=== PATIENT | male | born 1975 | race Hispanic/Latino ===

== ENCOUNTER 2019-06-20 18:38 | Outpatient (CLI) | payer OTHER, SELFPAY ==
--- NOTE | ~2019-06-20 | XR_ITS ---
EXAMINATION: XR ankle RT 2V DATE: 06/20/2019 18:56 INDICATION: Anterior right ankle pain TECHNIQUE: Anteroposterior, oblique, mortise, and lateral views of the right ankle were obtained. COMPARISON: None. FINDINGS: Alignment is normal. No fracture. Joint spaces are well maintained. Small Achilles and plantar calca brock spurs. No cortical erosions or periosteal reaction. No ankle joint effusion. Soft tissue swellin g with subcutaneous edema along the lateral aspect of the distal lower leg and more prominently overl taylor the lateral malleolus. IMPRESSION: 1. Soft tissue swelling at the lateral right lower leg and ankle with no ankle joint effusion or acut e osseous abnormality. Reviewed, dictated and finalized at location A. IC AWNING REPAIRER IMPRESSION: 1. Soft tissue swelling at the lateral right lower leg and ankle with no ankle joint effusion or acute osseous abnormality.
== END 2019-06-20 18:39 | disposition home or self-care (01) ==
LOC: ANHIMG 18:41
PROVIDERS: PCP Family Medicine; Visit Provider Family Medicine
DX: M25.579 Pain in unspecified ankle and joints of unspecified foot (principal); M79.89 Other specified soft tissue disorders
CPT/HCPCS: 73600

== ENCOUNTER 2020-03-19 08:02 | Emergency (ER) | payer OTHER, SELFPAY ==
--- NOTE | 2020-03-19 08:17 | ED.GENADULT ---
HPI - General Adult General Chief complaint: Wound/Laceration Stated complaint: pain in buttocks area Time Seen by Provider: 03/19/20 08:17 Source: patient Mode of arrival: ambulatory Limitations: no limitations History of Present Illness HPI narrative: 45-year-old male patient presents to the [facility] with complaints of a sore to right buttocks for the past 2 days. Patient states he has not been sleeping well due to the pain. Patient states he has taken some Tylenol for the pain recently. Patient states that he is type II diabetic and has had a sore to the buttocks before but states he had had surgery on it because it was on the bone. Patient states that when he feels this feels like a sore lump area to the buttocks. Denies any drainage from the area. Related Data Home Medications Medication Instructions Recorded Confirmed glimepiride [Amaryl] 1 mg PO TID 03/19/20 03/19/20 hydrochlorothiazide 12.5 mg PO DAILY 03/19/20 03/19/20 lisinopril [Zestril] 20 mg PO DAILY 03/19/20 03/19/20 metformin 1,000 mg PO BID 03/19/20 03/19/20 omeprazole magnesium [Prilosec OTC] 20 mg PO DAILY 03/19/20 03/19/20 sitagliptin [Januvia] 100 mg PO DAILY 03/19/20 03/19/20 Allergies Allergy/AdvReac Type Severity Reaction Status Date / Time No Known Allergies Allergy Verified 03/19/20 08:24 Review of Systems Review of Systems: Narrative: CONSTITUTIONAL: Denies fever, chills, or sweats. EYES: Denies visual changes, redness, or discharge. ENT: Denies rhinorrhea, congestion, sore throat, or otalgia. CARDIOVASCULAR: Denies chest pain, palpitations, or edema. RESPIRATORY: Denies cough or dyspnea. GASTROINTESTINAL: Denies abdominal pain, nausea, vomiting, or diarrhea. GENITOURINARY: Denies dysuria or hematuria. SKIN: Denies rash or itching. Positive wound to right buttocks x2 days MUSCULOSKELETAL: Denies back pain, joint pain, or myalgia. NEUROLOGIC: Denies headache, numbness, or weakness. PSYCHIATRIC: Denies anxiety or depression. [facility] Past Medical History Medical History (Updated 03/19/20 @ 08:50 by CATHY Fisher) Depression Diabetes GERD (gastroesophageal reflux disease) Hypertension Mixed hyperlipidemia Skin disorder Cyst removed on tailbone Type 2 diabetes mellitus Surgical History Surgical History (Updated 03/19/20 @ 08:19 by CATHY Fisher) History of appendectomy Family History Family History Other Diabetes mellitus Family history of kidney disease Hypertension Social History Social History Smoking status: Never smoker Second hand tobacco smoke exposure: No Alcohol intake: never Gender identity (if verbalized by the patient): Male Comments At the time of my signature I agree with nursing past medical history, surgical, social, and family history. There is no relevant family history pertinent to the presenting complaint. Exam Narrative: Exam Narrative: GENERAL: Well-appearing, well-nourished, and in no acute distress. HEAD: Normocephalic, atraumatic. EYES: PERRLA and EOMI. ENT: Nares clear, no rhinorrhea or epistaxis. Mucous membranes moist. NECK: Supple. No lymphadenopathy CHEST: Clear to auscultation. No respiratory distress. HEART: Regular rate and rhythm. No murmur heard. Normal peripheral pulses. ABDOMEN: Soft, nontender, nondistended, normal active bowel sounds. EXTREMITIES: Normal range of motion. No edema. SKIN: Warm, dry, no rash. Patient has approximately 7 cm abscess noted to the right buttocks. There is some tenderness noted. There is no active drainage at this time. The area is perirectal on the right side above the rectum. NEURO: No focal deficits. Alert and oriented x3. Course Vital Signs Vital signs: Vital Signs Temperature 35.9 C L 03/19/20 08:20 Pulse Rate 117 H 03/19/20 08:20 Respiratory Rate 16 03/19/20 08:20 Blood Pressure 176/93 H
[2020-03-19 08:20] VITALS: BP 176/93; PULSE 117; RESP 16; TEMP 35.9; O2SAT 98
== END 2020-03-19 08:55 | disposition home or self-care (01) ==
PROVIDERS: Emergency Provider Nurse Practitioner Family; PCP Family Medicine
DX: K61.1 Rectal abscess (principal); E11.9 Type 2 diabetes mellitus without complications; K21.9 Gastro-esophageal reflux disease without esophagitis; I10 Essential (primary) hypertension; E78.2 Mixed hyperlipidemia
CPT/HCPCS: 46050; 87070; 87077; 87186; 87205; 99213; G0463

== ENCOUNTER 2020-05-26 16:18 | Emergency (ER) | payer OTHER, SELFPAY ==
--- NOTE | 2020-05-26 16:25 | ED.GENADULT ---
HPI - General Adult General Chief complaint: Skin/Abscess/Foreign Body Stated complaint: Abscess in rectal area Time Seen by Provider: 05/26/20 16:35 Source: patient and RN notes reviewed Mode of arrival: ambulatory Limitations: no limitations History of Present Illness HPI narrative: 45-year-old male presents with complaints of abscess to buttock with redness, tenderness, and swelling for the past 4 days. Joe reports he finished a 10 day course of antibiotics (started on 05/06/20) for a recent abscess, 5 days later area started draining for a short time then stopped. Symptoms increased over the past 24 hours while riding in a car for 6 hours with increase pressure and pain. Joe was initially treated here at the [facility] with 7 days of Doxycycline, 7 days of Augmentin (given once wound culture returned with E-Coli and Streptococcus Anginosus) , then 10 days of Bactrim per PMD. Tender to touch. No current drainage. History of skin abscess. No fever or chills. No abdominal pain, nausea, and vomiting. Tolerating po intake well. Tetanus NOT up to date, will update today. Remains active. The patient reports he have not been diagnosed with COVID-19. The patient reports he is not waiting for the results of a COVID-19 lab test. The patient reports he do not have fever, weakness, or fatigue. The patient reports he do not have a new or worsening cough or shortness of breath. Denies chest pain. The patient reports he do not have any rhinorrhea, congestion, loss of taste, sore throat, and diarrhea. Joe reports he returned today from [place] dropping his daughter off at college. Denies concerns for COVID-19 or exposures been home with limited outdoor exposure except for essential household needs, work, and return home. At this time, patient is not suspected of having COVID-19. Some parts of this dictation were generated by voice recognition software and may contain typographical and/or grammatical inaccuracies. Related Data Home Medications Medication Instructions Recorded Confirmed glimepiride [Amaryl] 1 mg PO TID 03/19/20 03/19/20 hydrochlorothiazide 12.5 mg PO DAILY 03/19/20 03/19/20 metformin 1,000 mg PO BID 03/19/20 03/19/20 omeprazole magnesium [Prilosec OTC] 20 mg PO DAILY 03/19/20 03/19/20 sitagliptin [Januvia] 100 mg PO DAILY 03/19/20 03/19/20 ibuprofen 200 mg capsule 200 mg PO Q6H PRN 05/06/20 Allergies Allergy/AdvReac Type Severity Reaction Status Date / Time No Known Allergies Allergy Verified 05/26/20 16:28 Review of Systems Review of Systems: Narrative: CONSTITUTIONAL: Denies fever, chills, sweats. EYES: Denies visual changes, redness, discharge. ENT: Denies rhinorrhea, congestion, sore throat, otalgia. CARDIOVASCULAR: Denies chest pain, palpitations, edema. RESPIRATORY: Denies dyspnea, wheezing, cough. GASTROINTESTINAL: Denies abdominal pain, nausea, vomiting, diarrhea. GENITOURINARY: Denies dysuria, hematuria, abnormal discharge. SKIN: Denies rash or itching. Complains of abscess to buttock with redness, tenderness, and swelling. Denies drainage. MUSCULOSKELETAL: Denies acute back pain, joint pain, or myalgia. NEUROLOGIC: Denies numbness or focal weakness. PSYCHIATRIC: Denies anxiety or depression. All systems reviewed & are unremarkable except as noted in HPI and below. [facility] Past Medical History Medical History (Updated 05/27/20 @ 00:00 by Background Daemon) ACL (anterior cruciate ligament) tear Depression Diabetes Fatigue GERD (gastroesophageal reflux disease) Hypertension Mixed hyperlipidemia Morbid obesity Skin disorder Cyst removed on tailbone Type 2 diabetes mellitus Surgical History Surgical History (Updated 05/26/20 @ 17:09 by CATHY Greene) History of appendectomy History of removal of cyst from lower tailbone History of right knee surgery due to ACL tear Family History Family History (Updated 05/26/20 @ 17:11 by CATHY Greene) Father
[2020-05-26 16:30] VITALS: BP 183/95; PULSE 119; RESP 20; TEMP 37.1; O2SAT 99
[2020-05-26 16:35] VITALS: BP 183/95; PULSE 119; RESP 20; TEMP 37.1; O2SAT 99
[2020-05-26] MEDS: TETANUS,DIPHTHERIA,AC PERTUSSIS ADULT (0.5 ML) BOOSTRIX IM (17:01)
[2020-05-26 17:16] VITALS: BP 153/83; PULSE 108
== END 2020-05-26 17:18 | disposition home or self-care (01) ==
PROVIDERS: Emergency Provider Nurse Practitioner Family; PCP Family Medicine
DX: L02.31 Cutaneous abscess of buttock (principal); Z23 Encounter for immunization; E11.9 Type 2 diabetes mellitus without complications; K21.9 Gastro-esophageal reflux disease without esophagitis; E78.2 Mixed hyperlipidemia; I10 Essential (primary) hypertension; E66.01 Morbid (severe) obesity due to excess calories; Z68.43 Body mass index [BMI] 50.0-59.9, adult
CPT/HCPCS: 10160; 90471; 90715; 99213; G0463

== ENCOUNTER 2021-07-18 08:02 | Outpatient (CLI) | payer BC, SELFPAY ==
--- NOTE | 2021-07-28 13:05 | WPDSLEEPSTUD ---
Sleep Study Date of Study: 07/18/21 Ordering Provider: Mirta Martinez MD Interpreting Physician: Shasha Fritz MD Sleep Study Type: Split Polysomnogram Height: 1.83 m Weight: 181.891 kg Body Mass Index: 54.3 Neck Circumference (inches): 21 [place]: 13 Reason for Sleep Study Known obstructive sleep apnea, returns for a repeat titration with worsening symptoms. * March 17, 2010, basic sleep study with an AHI of 112.9, desaturation to 68% and loud snoring. Body mass index was 47.5. * April 02, 2010 CPAP titration showed optimal pressure 16 cm. Sleep History Joe Greenberg is a 46 year old man with diabetes and hypertension who was diagnosed with obstructive sleep apnea in 2009. He has been using CPAP since he was diagnosed. There is a positive history of sleep apnea in the family with his mother and aunt using CPAP. He constantly awakens from sleep feeling short of breath. He occasionally awakens at night with heartburn, belching or coughing. He constantly snores and is constantly loud enough that others complain about it. He frequently has trouble sleeping with a cold. He constantly wakes up gasping for breath at night and constantly has breathing problems at night observed by others. He occasionally sweats excessively at night. He frequently notices his heart pounding or beating irregularly at night. He constantly falls asleep during the day. He occasionally falls asleep involuntarily rarely falls asleep while driving. He does not have loss of muscle tone with strong emotion. 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 he rarely feels paralyzed on waking or falling asleep. He occasionally has vivid dreamlike scenes upon awakening or falling asleep. He occasionally feels afraid to go to sleep. He occasion he has nightmares members his dreams. He frequently has racing thoughts. He occasionally feels sad or depressed. He frequently has anxiety. Has muscular tension. He rarely notices parts of his body jerking. He does not kick at night. He rarely has crawling and aching feelings in his legs. He was usually has leg pain night pain. He frequently grinds his teeth during sleep. He frequently is bothered by pain during the day. He rarely is awakened by pain at night. He constantly wakes up feeling stiff in the morning with sore achy muscles. He frequently wakes up with pain in the neck and spine. Normal bedtime is midnight, He falls asleep quickly typically waking 4 times at night to use the bathroom. On average he stays awake between 10 and 15 minutes before returning to sleep. He estimates getting 6 hours of sleep at night. He sleeps a little longer on the weekends. He does not take naps in the afternoon or evening. A short nap of 15 minutes may be refreshing. He is usually drowsy in the morning for 1 hour or longer. Feels better in the evening compared to other times of day. Habits: No tobacco. No caffeine, alcohol or recreational drugs. [facility] Past Medical History Medical History ACL (anterior cruciate ligament) tear Depression Diabetes Fatigue GERD (gastroesophageal reflux disease) Hypertension Mixed hyperlipidemia Morbid obesity Obesity Obstructive sleep apnea Skin disorder Cyst removed on tailbone Type 2 diabetes mellitus Surgical History Surgical History History of appendectomy History of removal of cyst from lower tailbone History of right knee surgery due to ACL tear Family History Family History Father Hypertension Kidney failure Mother Diabetes mellitus Cervical cancer Congestive heart failure Other Family history of kidney disease Social History Social History Smoking statu
[2021-07-28 13:53] VITALS: BMI 54.3
== END 2021-07-19 07:30 | disposition home or self-care (01) ==
LOC: ANHCSM 07-21 08:02
PROVIDERS: PCP Family Medicine; Visit Provider Family Medicine
DX: G47.33 Obstructive sleep apnea (adult) (pediatric) (principal)
CPT/HCPCS: 95811

== ENCOUNTER 2021-10-10 19:24 | Emergency (ER) | payer BC, SELFPAY ==
--- NOTE | 2021-10-10 19:28 | ED.SKABFB ---
HPI - Skin/Abscess/Foreign Bdy General Chief complaint: Skin/Abscess/Foreign Body Stated complaint: Boil on buttocks Time Seen by Provider: 10/10/21 19:28 Source: patient Mode of arrival: ambulatory Limitations: no limitations History of Present Illness HPI narrative: 46-year-old male presents with complaint of abscess to right buttock since yesterday. Reports that the pain is getting progressively worse today. History of 2 previous abscesses 1 to left buttock and one to rectal area. Denies fever chills. 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 Had difficulty sitting due to pain. All systems reviewed and negative except as noted above. Related Data Home Medications Medication Instructions Recorded Confirmed omeprazole magnesium 20 mg 20 mg PO DAILY 03/19/20 10/10/21 tablet,delayed release (Prilosec OTC) xsaexbfh-gevxxrvr-kliuk acid 400 1 tablet PO DAILY 07/08/21 10/10/21 mcg-vit K 20 mcg-lycop 300 mcg tablet (One-A-Day Men's Multivitamin) Allergies Allergy/AdvReac Type Severity Reaction Status Date / Time No Known Allergies Allergy Verified 10/10/21 19:28 Review of Systems Review of Systems: CONSTITUTIONAL: Denies fever, chills, or sweats. EYES: Denies visual changes, redness, or discharge. ENT: Denies rhinorrhea, congestion, sore throat, or otalgia. CARDIOVASCULAR: Denies chest pain, palpitations, or edema. RESPIRATORY: Denies cough or dyspnea. GASTROINTESTINAL: Denies abdominal pain, nausea, vomiting, or diarrhea. GENITOURINARY: Denies dysuria or hematuria. SKIN: Denies rash or itching. Reports abscess to right buttock. MUSCULOSKELETAL: Denies back pain, joint pain, or myalgia. NEUROLOGIC: Denies headache, numbness, or weakness. PSYCHIATRIC: Denies anxiety or depression. All other systems reviewed are negative, except as documented in HPI. [facility] Past Medical History Medical History (Updated 10/10/21 @ 20:00 by Halley Cardona NP) ACL (anterior cruciate ligament) tear Depression Diabetes Fatigue GERD (gastroesophageal reflux disease) Hypertension Hypogonadism in male Mixed hyperlipidemia Morbid obesity Obesity Obstructive sleep apnea (~2009) Skin disorder Cyst removed on tailbone Sleep apnea Type 2 diabetes mellitus Surgical History Surgical History (Reviewed 09/17/21 @ 08:30 by Suma Vasquez [facility]) History of appendectomy History of removal of cyst from lower tailbone History of right knee surgery due to ACL tear Family History Family History (Reviewed 09/17/21 @ 08:30 by Suma Vasquez [facility]) Father Hypertension Kidney failure Mother Diabetes mellitus Cervical cancer Congestive heart failure Other Family history of kidney disease Social History Social History (Reviewed 09/17/21 @ 08:30 by Suma Vasquez [facility]) Second hand tobacco smoke exposure: No Alcohol intake: never Substance use: never Substance use type: does not use Additional living arrangements comments: spouse and kids Gender identity (if verbalized by the patient): Male Sexual Orientation (if Verbalized by the Patient): Straight or Heterosexual Comments At time of signature, agree with nursing past medical, surgical, social and family history. There is no relevant family history pertinent to the presenting complaint. Exam Narrative: GENERAL: This is a well-nourished, well-developed patient, in no apparent distress. HEAD: normocephalic, atraumatic. EYES: PERRL. Sclera clear/white. Vision is grossly intact. EARS: External ears normal NOSE: External nose normal NECK: Neck supple, non-tender without lymphadenopathy, masses or thyromegaly. CARDIOVASCULAR: Regular rate and rhythm without murmurs, gallops, or rubs. RESPIRATORY: Clear to auscultation. Breath sounds equal bilaterally. No wheezes, rales, or rhonchi. SKIN: warm, Dry, intact with no suspicious lesions or rash, good texture and turgor. Abscess to right buttock rloand
[2021-10-10 19:32] VITALS: BP 137/90; PULSE 115; RESP 16; TEMP 37.4; O2SAT 99
== END 2021-10-10 20:03 | disposition home or self-care (01) ==
PROVIDERS: Emergency Provider Nurse Practitioner Family; PCP Family Medicine
DX: L02.31 Cutaneous abscess of buttock (principal); K21.9 Gastro-esophageal reflux disease without esophagitis; E11.9 Type 2 diabetes mellitus without complications; I10 Essential (primary) hypertension; E78.5 Hyperlipidemia, unspecified; E66.01 Morbid (severe) obesity due to excess calories; Z68.43 Body mass index [BMI] 50.0-59.9, adult
CPT/HCPCS: 10061; 87070; 87075; 87077; 87147; 87181; 87186; 87205; 99213; G0463

== ENCOUNTER 2022-04-24 14:06 | Emergency (ER) | payer BC, SELFPAY ==
--- NOTE | 2022-04-24 14:14 | ED.BACK ---
HPI - Back Pain/Injury General Stated Complaint: back pain Time Seen by Provider: 04/24/22 14:15 Source: patient Mode of arrival: ambulatory Limitations: no limitations History of Present Illness HPI Narrative: Joe is a 47-year-old male patient presenting to clinic today with complaints of left-sided back pain x 2-3 days. He reports no fever or chills. Has had some nausea with this. He did have a history of a kidney stone in the past. States that the pain is constant dull ache to the left flank and radiates to his left side. Reports he has also had some diarrhea earlier this week due to an increase in his Ozempic. Reports his blood sugars have been in the 140s to 180s. Stretching and laying on his right side makes the pain worse. He does get some relief when laying on the left side. Rates his pain currently a 6/10. He has been taking Tylenol/ Motrin as needed for pain. Related Data Home Medications Medication Instructions Recorded Confirmed omeprazole magnesium 20 mg 20 mg PO DAILY 03/19/20 04/24/22 tablet,delayed release (Prilosec OTC) mnbcxllj-mwgyiyok-ejmwy acid 400 1 tablet PO DAILY 07/08/21 04/24/22 mcg-vit K 20 mcg-lycop 300 mcg tablet (One-A-Day Men's Multivitamin) cholecalciferol (vitamin D3) 25 25 mcg PO DAILY 04/14/22 04/24/22 mcg (1,000 unit) capsule Allergies Allergy/AdvReac Type Severity Reaction Status Date / Time No Known Allergies Allergy Verified 04/24/22 14:10 Review of Systems Review of Systems: Pertinent positives per HPI. Patient denies any fever, chills, rash, headache, visual changes, dizziness, cough, runny nose, sore throat, shortness of breath, chest pain, palpitations, nausea, vomiting, diarrhea, constipation, abdominal pain, or any urinary issues. [facility] Past Medical History Medical History ACL (anterior cruciate ligament) tear Depression Diabetes Fatigue GERD (gastroesophageal reflux disease) Hypertension Hypogonadism in male Mixed hyperlipidemia Morbid obesity Obesity Obstructive sleep apnea (~2009) Skin disorder Cyst removed on tailbone Sleep apnea Type 2 diabetes mellitus Surgical History Surgical History History of appendectomy History of removal of cyst from lower tailbone History of right knee surgery due to ACL tear Family History Family History Father Hypertension Kidney failure Mother Diabetes mellitus Cervical cancer Congestive heart failure Sibling Carcinoma of colon Other Family history of kidney disease Social History Social History Smoking status: Never smoker Second hand tobacco smoke exposure: No Alcohol intake: never Substance use: never Substance use type: does not use Additional living arrangements comments: spouse and kids Gender identity (if verbalized by the patient): Male Sexual Orientation (if Verbalized by the Patient): Straight or Heterosexual Comments At the time of my signature, I reviewed and agree with the nursing past medical, surgical, social, and family history. There is no relevant family history pertinent to the patient complaint. Exam Narrative: General: Well-developed, morbidly obese, in no apparent distress Head: Normocephalic, atraumatic. Cardio: Regular rate and rhythm, s1 and s2 normal, no murmur appreciated. Resp: Clear to auscultation bilaterally, no rhonchi, rales, wheezing or rubs. Musculoskeletal: No deformity, tender to palpation over the left flank and left mid low back, grossly normal range of motion, muscle strength strong and equal, peripheral pulse strong, no edema, no cyanosis, normal gait and station Course Course Emergency Course: Portions of this record may have been created wi
[2022-04-24 14:21] VITALS: BP 152/82; PULSE 100; RESP 16; TEMP 36.7; O2SAT 99
== END 2022-04-24 14:35 | disposition home or self-care (01) ==
PROVIDERS: Emergency Provider Nurse Practitioner Family; PCP Family Medicine
DX: R10.9 Unspecified abdominal pain (principal); R81 Glycosuria; E11.9 Type 2 diabetes mellitus without complications; I10 Essential (primary) hypertension; E78.2 Mixed hyperlipidemia
CPT/HCPCS: 81003; 99213; G0463

== ENCOUNTER 2022-04-27 14:45 | Outpatient (CLI) | payer BC, SELFPAY ==
--- NOTE | ~2022-04-27 | XR_ITS ---
Supine views of the abdomen Clinical history: Right flank pain Findings: Bowel gas pattern is nonspecific. No evidence for obstruction or free air. No abnormal mass lesion or calcification is seen. Osseous structures are intact. Impression: No significant abnormality is seen. Reviewed, dictated and finalized at location [] BOX COVERER Impression: No significant abnormality is seen.
--- NOTE | ~2022-04-27 | XR_ITS ---
EXAM: XR thoracic spine 3V DATE: 04/27/2022 15:12 HISTORY: M54.9 - Dorsalgia, unspecified . COMPARISON: None available. FINDINGS: Vertebral body alignment intact. Vertebral body heights preserved. Multilevel disc space n arrowing with a few marginal osteophytosis and bridging osteophytes anteriorly and laterally at multi ple levels. No traumatic malalignment or fracture. Visualized lung parenchyma is clear. IMPRESSION: No acute osseous finding in the thoracic spine. Multilevel moderate degenerative disc dis ease. Reviewed, dictated and finalized at location K. SOLICITOR IMPRESSION: No acute osseous finding in the thoracic spine. Multilevel moderate degenerative disc disease.
== END 2022-04-27 14:46 | disposition home or self-care (01) ==
PROVIDERS: PCP Family Medicine; Visit Provider Physician Assistant
DX: M54.9 Dorsalgia, unspecified (principal)
CPT/HCPCS: 72072; 74018

== ENCOUNTER 2022-05-22 15:57 | Outpatient (CLI) | payer BC, SELFPAY ==
--- NOTE | ~2022-05-22 | XR_ITS ---
XR lumbar spine min 4V DATE: 05/22/2022 16:25 INDICATION: Low back pain, radiating to left lower extremity TECHNIQUE: AP, lateral, bilateral oblique views and coned lateral lumbosacral view COMPARISON: None FINDINGS: The lumbar vertebrae are normally aligned without evidence of fracture or bone destruction, spondylolysis or spondylolisthesis. There is mild degenerative spurring of the lumbar vertebral bodi es. Lumbar and lumbosacral interspaces are relatively well preserved. The sacroiliac joints are intac t. IMPRESSION: Mild degenerative spurring Reviewed, dictated and finalized at location B. HOLE DIGGER IMPRESSION: Mild degenerative spurring
== END 2022-05-22 15:58 | disposition home or self-care (01) ==
PROVIDERS: PCP Family Medicine; Visit Provider Family Medicine
DX: M54.50 Low back pain, unspecified (principal)
CPT/HCPCS: 72110

== ENCOUNTER 2022-06-01 10:25 | Outpatient (CLI) | payer BC, SELFPAY ==
--- NOTE | ~2022-06-01 | CT_ITS ---
EXAMINATION: CT abdomen pelvis w con DATE: 06/01/2022 10:53 INDICATION: Left lower quadrant abdominal pain TECHNIQUE: Computed tomography (CT) of the abdomen and pelvis was performed with 100 cc Omnipaque 350 intravenous contrast. The dose-length product was 1196.57 mGy-cm. Automated exposure control and ite rative reconstruction technique were employed. COMPARISON: KUB dated 04/27/2022. FINDINGS: Lung bases are unremarkable. Heart size normal. No significant pleural or pericardial effus ion. Fatty infiltration of the liver. The spleen, pancreas, adrenal glands and right kidney are unremarkab le. There is a 2 mm nonobstructing left renal stone. Gallbladder is present. Nonobstructive bowel gas pattern. No evidence for diverticulitis. No free air or free fluid. Bladder is decompressed. No sign ificant vascular abnormality. No lymphadenopathy. No acute osseous abnormality. IMPRESSION: 1. No acute abdominal abnormality. Reviewed, dictated and finalized at location A. EL TICKETING REVIEWER
[2022-06-01 10:44] LABS: Estimated Glomerular Filt Rate > 60
== END 2022-06-01 10:26 ==
PROVIDERS: PCP Family Medicine; Visit Provider Family Medicine
DX: R10.32 Left lower quadrant pain (principal)
CPT/HCPCS: 74177; Q9967

== ENCOUNTER 2024-04-20 03:35 | Day surgery (SDC) | payer BC, SELFPAY ==
[2024-03-31 13:39] VITALS: BMI 51.1
--- NOTE | 2024-04-19 16:21 | WPDANESEPP ---
Anes - Eval Pre Procedure Procedure: Operation Date: 04/20/24 11:00 Proposed Procedures p Screening Colonoscopy - Jamey Yu DO Date/Time: 04/19/24 16:21 Pre Op Diagnosis: Screening for malignant neoplasm of colon Patient Data Age: 49 Gender: M Height: 1.83 m Weight: 171 kg Allergies Allergy/AdvReac Type Severity Reaction Status Date / Time No Known Allergies Allergy Verified 03/31/24 13:40 Home Medications Medication Instructions Recorded Confirmed Type omeprazole magnesium 20 mg 20 mg PO DAILY 03/19/20 03/31/24 History tablet,delayed release (Prilosec OTC) vzhhwxgr-cxdsbhyc-ptlcp acid 400 1 tablet PO DAILY 07/08/21 03/31/24 History mcg-vit K 20 mcg-lycop 300 mcg tablet (One-A-Day Men's Multivitamin) cholecalciferol (vitamin D3) 25 25 mcg PO DAILY 04/14/22 03/31/24 History mcg (1,000 unit) capsule flash glucose sensor (FreeStyle #6 ea 12/28/22 03/14/24 Rx Tae 2 Sensor kit) buspirone 7.5 mg tablet 7.5 mg PO TID PRN anxiety/stress 02/17/23 03/31/24 Rx #60 tabs potassium chloride 10 mEq 10 meq PO .TUES and THURS #30 caps 06/20/23 03/31/24 Rx capsule,extended release fish oil-dha-epa 1,200 mg-144 2 cap PO BID 09/16/23 03/31/24 History mg-216 mg capsule hydrochlorothiazide 25 mg tablet 25 mg PO DAILY #30 tabs 01/30/24 03/31/24 Rx lisinopril 20 mg tablet 20 mg PO DAILY 03/31/24 03/31/24 History rosuvastatin 5 mg tablet 5 mg PO DAILY 03/31/24 03/31/24 History metformin 1,000 mg tablet 1,000 mg PO BID #180 tabs 04/10/24 Rx semaglutide 2 mg/dose (8 mg/3 mL) 2 mg (0.75 mL) subcut WEEKLY 3 04/10/24 Rx subcutaneous pen injector (Ozempic) months #9 mL Farxiga 10 mg tablet See Rx Instructions .Route 04/19/24 Rx (dapagliflozin propanediol) .COMPLEX #90 tabs Patient hx anesthesia problems: none Family hx anesthesia problems: none Results Review: All pre-operative results and documents have been reviewed as part of the pre-operative evaluation. [facility] Past Medical History Medical History ACL (anterior cruciate ligament) tear Depression Diabetes Fatigue GERD (gastroesophageal reflux disease) Hypertension Hypogonadism in male Mixed hyperlipidemia Morbid obesity Obesity Obstructive sleep apnea (~2009) Skin disorder Cyst removed on tailbone Sleep apnea Type 2 diabetes mellitus Type 2 diabetes mellitus with hyperglycemia Surgical History Surgical History History of appendectomy History of removal of cyst from lower tailbone History of right knee surgery due to ACL tear Family History Family History Father Hypertension Kidney failure Mother Diabetes mellitus Cervical cancer Congestive heart failure Sibling Carcinoma of colon Other Family history of kidney disease Social History Social History Smoking status: Never smoker Second hand tobacco smoke exposure: No Alcohol intake: never Substance use: never Substance use type: does not use Do You Feel Safe in your Home?: Yes Lack of Transportation: No Lack of Food: Never True Current Housing: I Have Housing Concerned About Future Housing: No Difficulty Paying Gas/Electric Bills: No Difficulty Paying for Meds: YES Currently Unemployed: No Education: Bachelor's Degree Difficulty w/ Childcare or Family Care: No Living arrangements: with family Additional living arrangements comments: spouse and kids Occupation/Education: occupation Gender identity (if verbalized by the patient): Male Sexual Orientation (if Verbalized by the Patient): Straight or Heterosexual Spiritual care concerns: No Agree to blood products: Yes Exam Day of Procedure 04/19/24 16:21 Patient weight: morbidly obese
[2024-04-20 10:29] VITALS: BP 141/87; PULSE 88; RESP 18; TEMP 36.2; O2SAT 100
[2024-04-20 10:38] LABS: Glucose Point of Care 186 mg/dl (65-105)
[2024-04-20] MEDS: LACTATED RINGERS 1,000 ML 150 ML IV CONT (10:44)
--- NOTE | 2024-04-20 11:24 | P.HP_ITS ---
H&P: HPI History of Present Illness Date/Time: 04/20/24 11:24 Chief Complaint: family history of colon cancer Narrative: this is a 49-year-old man who presents for his 1st colonoscopy. He denies any hematochezia or melena. He has a family history of colon cancer in his brother. His brother was diagnosed in his 30s. Review of Systems Review of Systems: All systems reviewed & are unremarkable except as noted in HPI and below Constitutional: Constitutional: Denies chills, Denies fever(s), Denies headache(s) and Denies weight loss Eyes: Eyes: Denies change in vision ENT: Denies dizziness, Denies headache(s), Denies neck mass and Denies throat swelling Cardiovascular: Cardiovascular: Denies chest pain, Denies lightheadedness and Denies dyspnea Respiratory: Respiratory: Denies cough, Denies dyspnea and Denies wheezing Gastrointestinal: Gastrointestinal: Denies abdominal pain, Denies change in bowel habits, Denies nausea and Denies vomiting Genitourinary: Genitourinary: Denies hematuria and Denies dysuria Musculoskeletal: Musculoskeletal: Reports as per HPI Integumentary/Breasts: Skin/Breast: Reports as per HPI Neurologic: Denies dizziness and Denies headache(s) Allergic/Immunologic: Allergic/Immunologic: Denies throat swelling and Denies wheezing PMF Past Medical History Medical History ACL (anterior cruciate ligament) tear Depression Diabetes Fatigue GERD (gastroesophageal reflux disease) Hypertension Hypogonadism in male Mixed hyperlipidemia Morbid obesity Obesity Obstructive sleep apnea (~2009) Skin disorder Cyst removed on tailbone Sleep apnea Type 2 diabetes mellitus Type 2 diabetes mellitus with hyperglycemia Surgical History Surgical History History of appendectomy History of removal of cyst from lower tailbone History of right knee surgery due to ACL tear Family History Family History Father Hypertension Kidney failure Mother Diabetes mellitus Cervical cancer Congestive heart failure Sibling Carcinoma of colon Other Family history of kidney disease Social History Social History Smoking status: Never smoker Second hand tobacco smoke exposure: No Alcohol intake: never Substance use: never Substance use type: does not use Do You Feel Safe in your Home?: Yes Lack of Transportation: No Lack of Food: Never True Current Housing: I Have Housing Concerned About Future Housing: No Difficulty Paying Gas/Electric Bills: No Difficulty Paying for Meds: YES Currently Unemployed: No Education: Bachelor's Degree Difficulty w/ Childcare or Family Care: No Living arrangements: with family Additional living arrangements comments: spouse and kids Occupation/Education: occupation Gender identity (if verbalized by the patient): Male Sexual Orientation (if Verbalized by the Patient): Straight or Heterosexual Spiritual care concerns: No Agree to blood products: Yes Meds Home Medications and Allergies Home Medications Medication Instructions Recorded Confirmed Type omeprazole magnesium 20 mg 20 mg PO DAILY 03/19/20 04/20/24 History tablet,delayed release (Prilosec OTC) boruhqzl-qfievuds-dismj acid 400 1 tablet PO DAILY 07/08/21 03/31/24 History mcg-vit K 20 mcg-lycop 300 mcg tablet (One-A-Day Men's Multivitamin) cholecalciferol (vitamin D3) 25 25 mcg PO DAILY 04/14/22 03/31/24 History mcg (1,000 unit) capsule flash glucose sensor (FreeStyle #6 ea 12/28/22 03/14/24 Rx Tae 2 Sensor kit) buspirone 7.5 mg tablet 7.5 mg PO TID PRN anxiety/stress 02/17/23 04/20/24 Rx #60 tabs potassium chloride 10 mEq 10 meq PO .TUES and THURS #30 caps 06/20/23 04/20/24 Rx capsule,extended release fish oil-dha-epa 1,200 mg-144 2 cap PO BID 09/16/23 03/31/24 History mg-216 mg capsule hydrochlorothiazide 25 mg tablet 25 mg PO DAILY #30 tabs 01/30/24 04/20/24 Rx lisinopril 20 mg tablet 20 mg PO DAILY 03/31/24 04/20/24 History rosuvastatin 5 mg tablet 5 mg PO DAILY 03/31/24 04/20/24 History metformin 1,000 mg tablet 1,000 mg PO BID #180 tabs 04/10/24 04/20/24 Rx semaglutide 2 mg/dose (8 mg/3 mL) 2 mg (0.75 mL) subcut WEEKLY 3 04/10/24 04/20/24 Rx subcutaneous pen injector (Ozempic) months #9 mL Farxiga 10 mg tablet See Rx Instructions .Route 04/19/24 04/20/24 Rx (dapagliflozin propanediol) .COMPLEX #90 tabs Allergies Allergy/AdvReac Type Severity Reaction Status Date / Time No Known Allergies Allergy Verified 04/20/24 10:25 Vital Signs Vital Signs - 24 hr 04/20/24 10:29 Temperature 97.1 F L Pulse Rate 88 Respiratory Rate 18 Blood Pressure 141/87 H Pulse Oximetry 100 Oxygen Delivery Room Air Exam Const: General: no acute distress and alert Orientation/consciousness: patient oriented x3 HENMT: Head: normocephalic and atraumatic Ears: hearing grossly normal bilaterally Face/Nose/Sinus: Normal nares present Mouth: Yes Normal oral and palatal mucosa present Eyes: Periorbital: periorbital findings normal Sclera: sclerae normal EOM: EOMs intact bilaterally Neck: Neck: normal visual inspection, no lymphadenopathy and trachea midline Chest: Chest palpation & inspection: normal inspection of the chest Resp: Effort & Inspection: normal respiratory effort Auscultation: clear to auscultation bilaterally Cardio: Jugular venous distension: no JVD Rate: regular rate Rhythm: regular rhythm Heart sounds: S1 normal heart sound present and S2 normal hea rt sound present Peripheral pulses: Peripheral pulses 2+ throughout GI: Inspection: normal to inspection GI Palp: Yes Soft to palpation, No Tenderness to palpation present (GI), No Guarding due to palpation present (GI) and No Rebound tenderness present Percussion: Yes normal to percussion Auscultation: normal bowel sounds : General: Yes no CVA tenderness Back/Spine/Pelvis: Back: no CVA tenderness Neuro: General: patient oriented x3, no focal motor deficits and CN's II-XI intact bilaterally Cognition (Neuro): normal cognition Speech: normal speech Motor exam (neuro): 5/5 motor strength present throughout Extrem: General: capillary refill normal and no clubbing, cyanosis or edema Assessment and Plan Assessment and plan (1) Family hx of colon cancer: Code(s): Z80.0 - Family history of malignant neoplasm of digestive organs Status: Acute Assessment and Plan: I have recommended colonoscopy. I have discussed the procedure, risks, alda efits, and alternatives. Questions were answered. Patient is agreeable to proceed.
--- NOTE | 2024-04-20 11:28 | P.PNAN_ITS ---
Anes - Eval Final PreProcedure Day of Procedure 04/20/24 11:28 Patient weight: super morbidly obese Heart: regular rate and rhythm Lungs: decreased breath sounds Airway: Mallampati scale class II Neurological: alert and oriented Last oral intake: >/= 8 hours ASA classification: IV Emergent: no Anesthetic plan: proceed Anesthesia type and monitoring: general GIVS Results Review: All pre-operative results and documents have been reviewed as part of the pre- operative evaluation. Informed Consent: The patient's anesthetic plan and its attendant risks and benefits were discussed with the patient/family/POA. Questions were solicited and answers provided to the satisfaction of the patient/family/POA.
[2024-04-20 11:49] VITALS: BP 102/64; PULSE 86; RESP 19; O2SAT 96
[2024-04-20 11:59] VITALS: BP 124/70; PULSE 83; RESP 20; O2SAT 99
[2024-04-20 12:09] VITALS: BP 115/73; PULSE 80; RESP 18; O2SAT 99
== END 2024-04-20 12:23 | disposition home or self-care (01) ==
PROVIDERS: PCP Family Medicine; Visit Provider Surgery
PROC: 0DJD8ZZ Inspection of Lower Intestinal Tract, Via Natural or Artificial Opening Endoscopic (ICD-10-PCS; CPT 45378; principal; 2024-04-20 11:00)
DX: Z12.11 Encounter for screening for malignant neoplasm of colon (principal); D12.5 Benign neoplasm of sigmoid colon; I10 Essential (primary) hypertension; E11.65 Type 2 diabetes mellitus with hyperglycemia; E29.1 Testicular hypofunction; F32.A Depression, unspecified; K21.9 Gastro-esophageal reflux disease without esophagitis; G47.33 Obstructive sleep apnea (adult) (pediatric); E66.01 Morbid (severe) obesity due to excess calories; Z68.43 Body mass index [BMI] 50.0-59.9, adult; Z79.84 Long term (current) use of oral hypoglycemic drugs; Z79.85 Long-term (current) use of injectable non-insulin antidiabetic drugs; Z98.890 Other specified postprocedural states; Z80.0 Family history of malignant neoplasm of digestive organs; Z80.49 Family history of malignant neoplasm of other genital organs; Z82.49 Family history of ischemic heart disease and other diseases of the circulatory system
CPT/HCPCS: 45380; 82948; 88305; J2003; J2704; J7120